=== PATIENT | female | born 1940 | race Caucasian/White ===

== ENCOUNTER → 2017-06-05 | Outpatient (CLI) | payer OTHER, BC ==
[~2017-06-05] MED LIST: GABAPENTIN100 MG PO; LEVOTHYROXIN0.125 M1 PO; VICODIN 5-5001 EACH PO
== END ==
LOC: RAD 10:34
DX: M47.896 Other spondylosis, lumbar region (principal)

== ENCOUNTER → 2020-05-25 | Outpatient (CLI) | payer OTHER, BC ==
[~2020-05-25] MED LIST changes: +ALENDRONATE SOD70 MG PO; +FLONASE 0.05%50 MCG NASAL
[2020-05-25 11:49] LABS: BASOPHILS 1.3 % (0.0-2.0); EOSINOPHILS 1.4 % (0.0-3.0); HEMATOCRIT 36.3 % (37.0-47.0); HEMOGLOBIN 12.3 gm/dL (12.0-15.0); LYMPHOCYTES 25.3 % (24.0-44.0); MCH 31.4 pg (26.0-34.0); MCHC 33.9 g/dL (28.0-37.0); MCV 92.5 fL (80.0-100.0); MONOCYTES 7.3 % (1.0-8.0); PLATELET COUNT 305 thou/uL (150-400); POLYS 64.7 % (36.0-66.0); RBC 3.92 mil/uL (4.20-5.00); RDW 13.8 % (10.5-14.5); WBC 6.2 thou/uL (4.0-11.0)
[2020-05-25 12:05] LABS: ALBUMIN 3.9 g/dL (3.4-5.0); CALCIUM 8.9 mg/dL (8.5-10.1); CREATININE 0.8 mg/dL (0.6-1.0); POTASSIUM 4.2 mmol/L (3.5-5.1); TOTAL BILIRUBIN 0.3 mg/dL (0.2-1.0); TOTAL PROTEIN 6.9 g/dL (6.4-8.2)
[2020-05-25 12:21] LABS: URINE BILIRUBIN NEGATIVE (Negative); URINE BLOOD NEGATIVE (Negative); URINE CLARITY CLEAR; URINE COLOR YELLOW; URINE GLUCOSE-RANDOM* NEGATIVE (Negative); URINE KETONES NEGATIVE (Negative); URINE LEUKOCYTES 1+ (Negative); URINE NITRITE POSITIVE (Negative); URINE PROTEIN (DIPSTICK) NEGATIVE (Negative); URINE UROBILINOGEN 0.2 E.U./dl (0.2-1.0)
[2020-05-25 12:39] LABS: CASTS None Seen /LPF (None Seen); SQUAMOUS 0-3 Few /LPF (0-3)
[2020-05-25 12:40] LABS: BACTERIA >30 Many /HPF (None Seen); CRYSTALS None Seen /LPF (None Seen); URINE RBC None Seen /HPF (0-2); URINE WBC 6-15 Few /HPF (0-5)
--- NOTE | 2020-05-25 13:26 | EKG ---
[facility] [place] [address] ELECTROCARDIOGRAM REPORT Name: ANEL VASQUEZ Room #: REG [facility].#: [id number] Admission: 05/25/20 Attend Phys: Physician not on staff Discharge: Date of : 44 Report #: [id number] THIS REPORT FOR: cc: Louisa Covarrubias MD, Jennifer L MD Couchonnal, Luis F. 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
[2020-05-26 01:06] LABS: GLYCOHEMOGLOBIN (HGB A1C) 5.8 % (4.8-5.6)
== END ==
LOC: RAD 10:43
DX: Z01.818 Encounter for other preprocedural examination (principal); M17.9 Osteoarthritis of knee, unspecified; M47.9 Spondylosis, unspecified; I49.5 Sick sinus syndrome; I45.10 Unspecified right bundle-branch block; Z98.890 Other specified postprocedural states